=== PATIENT | male | born 1955 | race Caucasian/White ===

== ENCOUNTER → 2025-04-20 13:53 | Outpatient (REF) | payer MEDICARE, SELFPAY | LOC: RCS 13:53 | PROVIDERS: ATTENDING PHYSICIAN Internal Medicine | DX: I45.4 Nonspecific intraventricular block (principal); E78.5 Hyperlipidemia, unspecified; E78.41 Elevated Lipoprotein(a) | CPT/HCPCS: 75571; 93306 ==

== ENCOUNTER → 2025-08-10 20:09 | Outpatient (REF) | payer MEDICARE, OTHER, SELFPAY | LOC: PAVMRI 20:09 | PROVIDERS: ATTENDING PHYSICIAN Orthopaedic Surgery; FAMILY PHYSICIAN Internal Medicine | DX: M25.522 Pain in left elbow (principal) | CPT/HCPCS: 73221 ==